=== PATIENT | female | born 1975 | race Caucasian/White ===

== ENCOUNTER → 2017-05-17 | Outpatient (CLI) | payer MEDICARE, OTHER ==
[2016-07-15 15:20] VITALS: BP 121/76
[~2017-05-17] MED LIST: BACL20TA PO; CITA40TA12 PO; CLON2TAB2 PO; DEXT30CA6 PO; DIPH25CA58 PO; GABA-585 PO; LURA40TA PO; OMEP20TA63 PO
--- NOTE | 2017-05-17 15:14 | RAD ---
MR of the right ankle Indication: Ankle injuries 1 week ago. Pain and swelling.. Technique: Standard multiplanar sequences are obtained. Findings: Peroneal tendons: Intact, no dislocation Lateral ligaments: Sprain/partial tearing of the anterior talofibular and calcaneofibular ligaments, and the posterior talofibular ligament. Tibiofibular syndesmosis: Tear of the anterior inferior tibiofibular ligament. Medial tendons: Posterior tibial and flexor tendons are intact, with mild tendon sheath fluid, primarily at the knot of Beto.. Medial ligaments: No evidence of acute deltoid ligament tear Anterior tendons: Anterior tibial and extensor tendons are intact. Achilles tendon: Intact Plantar aponeurosis: No acute plantar fasciitis Subtalar joints: Patent Tarsal sinus: Intact Talar Dome: Intact Bones: Extensive bone marrow contusion/edema of the distal tibia. There is a horizontal incomplete fracture of the distal tibia, roughly paralleling the growth plate scar, greater posteriorly. No displacement. Mild marrow edema or contusion of the distal fibula. Fluid: Small tibiotalar joint effusion. Trace fluid in the posterior subtalar joint. Joints: No advanced DJD. Soft tissues: Mild soft tissue edema surrounding the ankle. Impression: 1. Sprain/partial tearing of the lateral ankle ligaments. 2. Tear of the anterior inferior tibiofibular ligament. 3. Nondisplaced posttraumatic horizontal fracture of the distal tibia, roughly in the area of the growth plate scar. Electronically signed by: Michael Singh MD (05/17/2017 3:10 PM) [id number]
== END | disposition home or self-care (01) ==
LOC: MRI 12:59
PROVIDERS: ATTEND Orthopaedic Surgery Sports Medicine
DX: S82.301D Unspecified fracture of lower end of right tibia, subsequent encounter for closed fracture with routine healing (principal); S93.431D Sprain of tibiofibular ligament of right ankle, subsequent encounter; S99.911D Unspecified injury of right ankle, subsequent encounter; X58.XXXD Exposure to other specified factors, subsequent encounter
CPT/HCPCS: 73721